=== PATIENT | male | born 1960 | race Caucasian/White ===

== ENCOUNTER 2020-06-01 18:22 | Emergency (ER) | payer OTHER ==
[~2020-06-01] VITALS: Ht 188 cm; Wt 112.5 kg
[~2020-06-01 18:22] MED LIST: ASPIR 8181 MG PO; CLONAZEPAM; FLEXERIL PO; HTN MED; HYDROCODON-ACE1 EAC5 PO; LISINOPRIL10 MG PO; NAPROSYN500 MG PO; NORCO 10-325 T1 EACH PO; PERCOCET 10-321 EACH PO; PREDNISONE 20 M20 MG; TRAMADOL HCL50 MG PO; XARELTO10 MG PO; ZPAK PO
[2020-06-01 19:24] VITALS: BP 132/78
== END 2020-06-01 19:24 | disposition home or self-care (01) ==
LOC: ER 18:22
DX: S06.0X0A Concussion without loss of consciousness, initial encounter (principal); S01.00XA Unspecified open wound of scalp, initial encounter; F17.210 Nicotine dependence, cigarettes, uncomplicated; Z79.899 Other long term (current) drug therapy; Z86.73 Personal history of transient ischemic attack (TIA), and cerebral infarction without residual deficits; W22.8XXA Striking against or struck by other objects, initial encounter; Y93.89 Activity, other specified; Y92.89 Other specified places as the place of occurrence of the external cause; Y99.8 Other external cause status